=== PATIENT | female | born 1995 | race Caucasian/White ===

== ENCOUNTER 2018-11-24 03:56 | Inpatient (IN) | payer OTHER ==
[2018-11-24 08:31] VITALS: BMI 37.3
[2018-11-24] MEDS ORDERED: Oxytocin 30 UNIT 30 UNITS/500 ML BAG IV ONE ×2 (08:39)
[2018-11-24] MEDS ORDERED: Lactated Ringer's 1,000 ML IV SCH (08:45)
[2018-11-24] MEDS: Lactated Ringer's 2,000 ML IV SCH ×2 (09:00→10:00)
[2018-11-24] MEDS ORDERED: Fentanyl/Bupivacaine HCl 250 ML EPI ONE (09:53)
[2018-11-24 10:00] LABS: BASO # 0.1 K/uL (0.0-0.2); BASO % 0.5 % (0.0-2.0); EOS % 0.1 % (0.0-4.0); HEMOGLOBIN 11.1 g/dL (12.0-16.0); LYMPH # 1.6 K/uL (1.0-4.3); LYMPH % 12.8 % (20.0-40.0); MEAN CELL VOLUME 92.5 fl (81.0-99.0); MEAN CORPUSCULAR HEMOGLOBIN 30.7 pg (27.0-31.0); MEAN CORPUSCULAR HGB CONC 33.2 g/dL (33.0-37.0); MEAN PLATELET VOLUME 9.9 fl (7.2-11.7); MONO # 0.7 K/uL (0.0-0.8); MONO % 5.5 % (0.0-10.0); NEUT # 10.3 K/uL (1.8-7.0); NEUT % 81.1 % (50.0-75.0); RBC 3.62 Mil/uL (3.80-5.20); RED CELL DISTRIBUTION WIDTH 14.6 % (11.5-14.5); WHITE BLOOD COUNT 12.6 K/uL (4.8-10.8)
[2018-11-24] MEDS: Lactated Ringer's 1,000 ML IV SCH ×3 (11:00→18:57)
--- NOTE | 2018-11-24 14:12 | OBADHP ---
Datetime: 11/24/2018 05:00 IP Chief Complaint Other: cervical changes Admit Comment, IP Provider: 23 y/o female 40.1 GA IUP presents w/ painful contractions and cervical changes GBS neg, HBsAG neg, HIV neg, RPR neg admits and augument Pelvic Type - PN: Not Done Extremities - PN: Normal Abdomen - PN: Abnormal Back - PN: Normal Breast - PN: Not Done Lungs - PN: Normal Heart - PN: Normal Thyroid - PN: Normal Neurologic - PN: Not Done HEENT - PN: Normal General - PN: Normal FHR - Baseline A Provider: 150 Membranes, Provider: Intact Contraction Comments Provider: 4-6 min Comments, ACOG Physical Exam: Abd soft Nt, gravid fundus at term Ext no calf tenderness Gestation - Est Wks by US: 40.1 IP Hx Assessment: The History has been Reviewed and is Current Vital Signs Provider: Reviewed; Within Normal Limits IP Chief Complaint: Uterine contractions; Other NICHD Variability Prov Fetus A: Moderate 6-25bpm NICHD Accel Fetus A IP Provider: 15X15 NICHD Decel Fetus A IP Provider: None Dilatation, Provider: 2-3 cm Effacement, Provider: 80 Station, Provider: -2 Genitourinary Exam: Normal DTRs - PN: Normal EGA AdmitDate IP: 40.1 IP Adm Impression: Term, intrauterine ; Active labor IP Admit Plan: Admit to unit; Initiate labor protocol
[2018-11-24] MEDS ORDERED: Bupivacaine HCl 0.5% PF (30 ml) Inj ONE (14:59)
[2018-11-24] MEDS ORDERED: OXYTOCIN/0.9 % NS 20 UNIT/1,000 ML BAG IV SCH (17:00)
[2018-11-24] MEDS ORDERED: Bupivacaine HCl 0.25% PF (10 ml) Inj ONE (18:13)
[2018-11-24] MEDS ORDERED: cefOXitin IV 1 gm in Dextrose 1 GM/50 ML BAG IVPB ONE (20:23)
--- NOTE | 2018-11-24 20:35 | OBPN ---
Datetime: 11/24/2018 20:24 IP Progress Impression Other: slow progress of labor/maternal request IP Informed Consent Obtain: Section Delivery IP Progress Plan: Deliver- Section Membranes, Provider: Ruptured Amniotic Fluid Color, Provider: Clear FHR - Baseline A Provider: 150 Gestation - Est Wks by US: 40.@ Presentation-Admit: Cephalic IP Progress Note Comment: pt requesting a C/S and refuses augumentation of epidural or continue augu mentation of labor Discussed with pt and her mother/n/partner (at pt request) about vaginal delivery vs C/S including benefits vs risks for each modality as well as risks and complications of surgery an d anesthesia still pt requesting a C/S Informed consent was obtained and will prepare for this Anest hesia called NICHD Accel Fetus A IP Provider: 10X10 NICHD Variability Prov Fetus A: Moderate 6-25bpm Dilatation, Provider: 5-6cm Effacement, Provider: 90 Station, Provider: -2 NICHD Decel Fetus A IP Provider: None Datetime: 11/24/2018 05:00 Contraction Comments Provider: 4-6 min Vital Signs Provider: Reviewed; Within Normal Limits
[2018-11-24] MEDS ORDERED: Morphine 1 mg/ml preservative-free Inj(Duramorph) ONE (20:48)
[2018-11-24] MEDS ORDERED: Phenylephrine 10 mg/ml Inj ONE (20:56)
[2018-11-24] MEDS: Oxycodone/Acetaminophen 5/325 mg Tab PO PRN (22:59)
[2018-11-25] MEDS ORDERED: cefOXitin Sodium 1 GM in Sodium Chloride 0.9% 100 ML IVPB SCH ×2 (01:00→05:00)
[2018-11-25 06:49] LABS: HEMOGLOBIN 9.2 g/dL (12.0-16.0); MEAN CELL VOLUME 92.5 fl (81.0-99.0); MEAN CORPUSCULAR HEMOGLOBIN 30.8 pg (27.0-31.0); MEAN CORPUSCULAR HGB CONC 33.3 g/dL (33.0-37.0); RBC 2.99 Mil/uL (3.80-5.20); RED CELL DISTRIBUTION WIDTH 15.1 % (11.5-14.5); WHITE BLOOD COUNT 16.5 K/uL (4.8-10.8)
[2018-11-25] MEDS: Oxycodone/Acetaminophen 5/325 mg Tab PO PRN ×2 (07:44→21:45)
[2018-11-25] MEDS ORDERED: Multivitamin With Minerals Tab PO SCH (09:00)
[2018-11-25] MEDS ORDERED: Influenza Vaccine (5 YR UP)/PF 60 MCG/0.5 ML SYR IM ONE (09:00)
--- NOTE | 2018-11-25 09:05 | OBPPN ---
Datetime: 11/25/2018 09:00 PP Pain Prov: Within normal limits PP Pain Prov comment: No SOB, chest or leg pains PP Nausea Prov: Denies PP BM Prov: No PP Breasts Prov: Normal PP Lungs Prov: Normal PP Abdomen/Uterus Prov: Abnormal PP Lochia Prov: Normal PP Vulva/Perineum Prov: Normal PP CVA Tenderness Prov: Normal PP Extremities Prov: Normal PP C/S Incision Prov: Normal PP Progress Prov: Normal PP Comments Phys Exam Prov: breast not engorged, abd soft nd, fundus firm at umb Dressing intact no sign of active bleeding Ext no edema or calf tenderness PP Impression Prov: Normal progression PP Plan Prov: Continue present management PP Progress Note Prov: advance diet as tolerated OOB and ambulation and increase po fluids IP PP Procedures: None
[2018-11-25] MEDS ORDERED: cefOXitin IV 1 gm in Dextrose 1 GM/50 ML BAG IVPB SCH (11:00)
[2018-11-25] MEDS ORDERED: DiphenhydrAMINE 50 mg/ml Inj IM STA (19:20)
[2018-11-26] MEDS: Oxycodone/Acetaminophen 5/325 mg Tab PO PRN (05:03)
[2018-11-26] MEDS ORDERED: Oxycodone/Acetaminophen 5/325 mg Tab PO PRN (08:00)
[2018-11-26] MEDS ORDERED: DiphenhydrAMINE 50 mg/ml Inj IM STA (08:00)
[2018-11-26] MEDS: Multivitamin With Minerals Tab PO SCH (08:36)
--- NOTE | 2018-11-26 12:42 | OBPPN ---
Datetime: 11/26/2018 12:38 PP Pain Prov: Within normal limits PP Pain Prov comment: no SOB, chest or leg pains PP Nausea Prov: Denies PP Flatus Prov: Yes PP BM Prov: No PP Nausea Prov comment: Voiding well PP Flatus Prov comment: no C/F PP Breasts Prov: Normal PP Lungs Prov: Normal PP Abdomen/Uterus Prov: Abnormal PP Lochia Prov: Normal PP Vulva/Perineum Prov: Normal PP CVA Tenderness Prov: Normal PP Extremities Prov: Normal PP C/S Incision Prov: Normal PP Progress Prov: Normal PP Comments Phys Exam Prov: breast NE, NT; Abd soft not distended fundus firm at umb. Dressing remov ed no active bleeding or sign of infection. Prolene suture in place PP Impression Prov: Normal progression PP Plan Prov: Continue present management PP Progress Note Prov: Dulcolax suppt this am, OOB and ambulation Continue po care IP PP Procedures: None Vital Signs Provider PP: Reviewed
[2018-11-26] MEDS ORDERED: cefOXitin Sodium 1 GM in Sodium Chloride 0.9% 100 ML IVPB SCH (20:00)
[2018-11-26] MEDS ORDERED: cefOXitin IV 1 gm in Dextrose 1 GM/50 ML BAG IVPB SCH (20:00)
--- NOTE | 2018-11-26 21:14 | OP ---
PROCEDURE DATE: 11/24/2018 PREOPERATIVE DIAGNOSES: 1. at term in labor. 2. Slow progress of labor. 3. Maternal request for abdominal delivery. POSTOPERATIVE DIAGNOSES: 1. at term in labor. 2. Slow progress of labor. 3. Maternal request for abdominal delivery. PROCEDURE PERFORMED: Primary low transverse segment section. SURGEON: Jose Stone MD SMOKE CHASER: Dr. Rice. Dr. Rice was present for the entire duration of the case. Licensed Embalmer Supervisor needed in providing positioning of the patient, opening of the abdomen, delivery of the baby, and closure of the abdomen. No surgical residents presented at this time. ANESTHESIA USED: Spinal. ANESTHESIOLOGIST: Brady Long MD ESTIMATED BLOOD LOSS: 800 mL. DRAINS USED: None. REPLACEMENTS USED: None. FINDINGS: 1. Delivered living baby girl. Baby appeared term, but large for gestational age. Baby cried spontaneously. Pediatrist in attendance. score of 9 and 9. 2. Amniotic fluid clear. 3. Placenta complete and intact. 4. Both tubes and ovaries appeared grossly within normal limits to inspection bilaterally. DESCRIPTION OF PROCEDURE: The patient was taken to the operating room and placed on the operating table in a supine position. At this time, epidural anesthesia had been previously induced, was not working well and a spinal anesthesia was then induced. A Monsalve catheter had been previously inserted in the bladder was draining clear fluid. Both legs were applied with Venodyne boots and the patient after the spinal anesthesia induced was placed in a supine position. The abdomen was then draped and prepped in the usual sterile manner. Anesthesia tested and found to be well secured and a Pfannenstiel incision was then made using two fingerbreadths above the symphysis pubis. The incision was then extended down to subcutaneous tissue using sharp dissection. At this time, electrocoagulation was applied in order to obtain hemostasis. Fascia was then identified. It was then entered in the midline. Incision of the fascia was then extended laterally in each direction using sharp dissection. Rectus muscle was then identified. It was then slit in the midline exposing the peritoneum. Peritoneal layer was then picked up using two Shayna clamps, retracted superiorly and then entered using sharp dissection. Incision of the peritoneum was then extended superiorly and inferiorly under direct visualization. At this time, we then proceeded to identify the bladder, which was then retracted inferiorly using a Varney retractor. The low transverse segment of the uterus was then identified and the visceral peritoneum covering this area was then entered using sharp dissection. Using blunt dissection, a bladder flap was then created and retracted inferiorly using the same Varney retractor. An incision was then made in the low transverse segment of the uterus. Upon entering the uterine cavity, clear fluid noted to be present. The incision was then extended laterally on each direction using bandage scissors. Using a manual scooping procedure, a living baby girl was then delivered. The baby appeared term, but it cried spontaneously. The baby appeared slightly large for gestational age. At this time, the umbilicus was then doubly clamped, cut and the baby handed to the pediatric personnel who was standing by. Samples of cord blood were then obtained and the placenta was then delivered complete and intact. At this stage, the uterus was then exteriorized to provide better visualization. The uterine cavity was then thoroughly cleaned using moist lap pad and the uterus was massaged and contracted well. Edges of the uterine incision were then secured using multiple T clamps and small left cervical laceration noted to be present, which was then sutured using 0 Vicryl suture in a continuous interlocking manner. No bleeding noted. At this time, the uterine incision was then approximated using 0 Vicryl suture in a continuous interlocking manner. Again, hemostasis was checked and found to be well secured. A second layer was also applied using 0 Vicryl suture in a continuous manner. All operatives areas checked, hemostatically secured. No bleeding noted from the repair of small cervical laceration. At this time, both tubes and ovaries appeared grossly within normal limits to inspection bilaterally. Free amniotic fluid and blood was evacuated from the pelvic cavity. Pelvic cavity was then irrigated using saline solution. All operatives areas checked, hemostatically secured and the uterus was then allowed to retract back into its original position. Following this, all operatives areas again checked, hemostatically secured. Peritoneum was then closed using 0 Vicryl suture in a continuous manner. The rectus muscle was also approximated at the midline using 0 Vicryl suture in a continuous manner. At this time, all operatives areas checked, hemostatically secured and the fascia was then identified and was then approximated using 1 Vicryl suture in a continuous manner. The fascia was then checked and found to be free of defect. Subcutaneous tissue was then irrigated using saline solution and approximated using several interrupted 2-0 plain sutures. The skin was then approximated using 3-0 Prolene in a subcuticular fashion. Steri-Strips were then applied. The patient tolerated the procedure well. There were no complications. She was transferred to the recovery room in satisfactory condition. Clear fluid had been noted to be present in the Monsalve bag and it was clear. At this time, sponge, instrument and needle count were correct x3. The patient tolerated the procedure well. There were no complications. Jose Stone MD
[2018-11-27] MEDS: cefOXitin IV 1 gm in Dextrose 1 GM/50 ML BAG IVPB SCH ×2 (03:45→12:20)
[2018-11-27 06:23] LABS: HEMOGLOBIN 9.3 g/dL (12.0-16.0); MEAN CELL VOLUME 93.1 fl (81.0-99.0); MEAN CORPUSCULAR HEMOGLOBIN 30.5 pg (27.0-31.0); MEAN CORPUSCULAR HGB CONC 32.8 g/dL (33.0-37.0); RBC 3.05 Mil/uL (3.80-5.20); RED CELL DISTRIBUTION WIDTH 14.9 % (11.5-14.5); WHITE BLOOD COUNT 14.2 K/uL (4.8-10.8)
--- NOTE | 2018-11-27 07:58 | OBPPN ---
Datetime: 11/27/2018 07:50 PP Pain Prov: Within normal limits PP Pain Prov comment: No SOB chest or leg pains PP Nausea Prov: Denies PP Flatus Prov: Yes PP BM Prov: Yes PP Nausea Prov comment: had fever yesterday x1 PP Flatus Prov comment: Denies C/F PP Breasts Prov: Normal PP Lungs Prov: Normal PP Abdomen/Uterus Prov: Abnormal PP Lochia Prov: Normal PP CVA Tenderness Prov: Normal PP Extremities Prov: Normal PP C/S Incision Prov: Normal PP Progress Prov: Normal PP Comments Phys Exam Prov: breast soft NE, NT, breast feeding; Abd soft ND, depressible Fundus firm below the umb, incision clean and dry no suppt or discharge s utures in place; ext no leg edema or calf tenderness PP Impression Prov: Normal progression PP Plan Prov: Discharge PP Progress Note Prov: no further fever and will monitor this am if no more will D/C home on po Kefl ex and folllow up office 1 wk IP PP Procedures: None Vital Signs Provider PP: Reviewed
--- NOTE | 2018-11-27 08:00 | OBDCSUM ---
Datetime: 11/27/2018 07:56 Discharged to, Provider: Home Follow up at, Provider: Dr Stone Disch Instr Activity: Bedrest; May be up to bathroom; May be up for meals; May Shower Disch Instr Diet: Regular Discharge Instructions, Provider: Routine instructions given Discharge Diagnosis, Provider: Term Delivered Follow up in weeks, Provider: 1 wk Disch Referrals: None Contraception discussed, Prov: Yes Disch Activity Restrictions: No exercising; No lifting; No driving; Minimize walking; Minimize stair -climbing; No sexual activity; Nothing in vagina - [place], tampons, douche Discharge Comment, Provider: rx for percocet and Keflex given Continue PNC vit and iron Contraception after Delivery: Undecided
[2018-11-27] MEDS: Multivitamin With Minerals Tab PO SCH (08:19)
[2018-11-27] MEDS ORDERED: cefOXitin Sodium 1 GM in Sodium Chloride 0.9% 100 ML IVPB SCH (20:00)
[2018-11-27 22:57] VITALS: BP 130/70; PULSE 98; RESP 20; TEMP 98.7; O2SAT 100
== END 2018-11-27 15:30 | disposition home or self-care (01) | DRG 371 ==
LOC: H.EROB2 03:56 → H.L&D 08:34 → H.OB/GYN 11-25 01:00
PROVIDERS: ADMIT Specialist; ATTEND Specialist
PROC: 10D00Z1 Extraction of Products of Conception, Low, Open Approach (ICD-10-PCS; principal; 2018-11-24)
PROC: 4A1HXCZ Monitoring of Products of Conception, Cardiac Rate, External Approach (ICD-10-PCS; 2018-11-24)
DX: O36.63X0 Maternal care for excessive fetal growth, third trimester, not applicable or unspecified (principal); Z3A.40 40 weeks gestation of pregnancy; Z37.0 Single live birth